=== PATIENT | female | born 1960 | race Caucasian/White ===

== ENCOUNTER 2016-05-20 20:16 | Inpatient (IN) | payer OTHER ==
[~2016-05-20] VITALS: Ht 165.1 cm; Wt 72.6 kg
[~2016-05-20 20:16] MED LIST: EC NAPROSYN500 MG PO; PERCOCET 325 MG1 TA2 PO
--- NOTE | 2016-05-20 20:45 | ED GENERAL ADULT ---
History of Present Illness General Chief Complaint: General Adult Stated Complaint: DIFF BREATHING /"I THINK I HAVE THE FLU"PER PT Source: patient Exam Limitations: no limitations Vital Signs & Intake/Output Vital Signs & Intake/Output Vital Signs Date Time Temp Pulse Resp B/P Pulse O2 O2 Flow FiO2 Ox Delivery Rate 05/21 1222 94 Nasal 3.0L Cannula 05/21 0926 96 Nasal 3.0L Cannula 05/21 0920 Nasal 3.0L Cannula 05/21 0800 94 Nasal 2.0L Cannula 05/21 0619 99.2 111 20 150/80 97 Nasal 2.0L Cannula 05/21 0043 97 Nasal 2.0L Cannula 05/20 2352 97.4 100 18 164/86 97 Nasal 2.0L Cannula 05/20 2209 98.6 108 22 168/86 93 Nasal 2.0L Cannula 05/20 2101 Nasal 2.0L Cannula 05/20 2027 97.9 102 22 180/103 91 Room Air ED Intake and Output 05/21 0000 05/20 1200 Intake Total Output Total Balance Patient 160 lb Weight Triage Note: PT TO ED C/O DIFF BREATHING, NAUSEA/DRY HEAVING/DIARRHEA AND MILD HEADACHE, STARTED YESTERDAY, WORSE TODAY. PMH OF COPD, USES ADVAIR AND ALBUTEROL INH. O2 SAT 91% ON RA WITH INCREASED WOB AND DIMINISHED LUNG SOUNDS. DENIES SORE THROAT Triage Nurses Notes Reviewed? yes Onset: Abrupt Duration: day(s): (2), constant, continues in ED Timing: recent history Severity: moderate, severe No Modifying Factors: none HPI: 55-year-old female comes into emergency room for further evaluation of cough, fever or chills body aches, diarrhea, weakness, shortness of breath and wheezing. Symptoms of a going on for the past 2 days. Patient feels like she has the flu. Denies any chest pain. Nothing seems to make the symptoms better or worse. Patient has a history of COPD and is not on oxygen at home. (VASHTI LEWIS) Allergies Coded Allergies: Penicillins (UNKNOWN 05/20/16) bupropion (UNKNOWN 05/20/16) iodine (UNKNOWN 05/20/16) shellfish derived (UNKNOWN 05/20/16) Reconcile Medications Albuterol Sulfate (Ventolin Hfa) 90 MCG HFA.AER.AD 2 PUF INH Q4-6 PRN PRN SOB (Reported) Fluticasone/Salmeterol (Advair 250-50 Diskus) 250 MCG-50 MCG/DOSE BLST.W.DEV 1 PUF INH BID COPD (Reported) (FRANSICO DAN,KATE) Past History Travel History Traveled to [place] past 21 day No Medical History Any Pertinent Medical History? see below for history Respiratory: COPD Surgical History Surgical History: non-contributory Psychosocial History What is your primary language Croatian Tobacco Use: Current Daily Use Daily Tobacco Use Amount/Type: => 5 Cigarettes daily ETOH Use: 5 Family History Hx Contributory? No (VASHTI LEWIS) Review of Systems Review of Systems Constitutional: Reports: see HPI. EENTM: Reports: see HPI. Respiratory: Reports: see HPI. Cardiovascular: Reports: no symptoms. GI: Reports: no symptoms. Genitourinary: Reports: no symptoms. Musculoskeletal: Reports: no symptoms. Skin: Reports: no symptoms. Neurological/Psychological: Reports: no symptoms. Hematologic/Endocrine: Reports: no symptoms. Immunologic/Allergic: Reports: no symptoms. All Other Systems: Reviewed and Negative (VASHTI LEWIS) Physical Exam Physical Exam General Appearance: alert, awake, moderate distress Head: atraumatic, normal appearance Eyes: Bilateral: normal appearance, EOMI. Ears, Nose, Throat: normal ENT inspection, hearing grossly normal Neck: normal inspection Respiratory: accessory muscle use, respiratory distress (mild) Cardiovascular: regular rate/rhythm Back: normal inspection Extremities: normal inspection Neurologic/Psych: awake, alert, oriented x 3, normal gait Skin: intact, normal color Core Measures ACS in differential dx? Yes CVA/TIA Diagnosis: No Severe Sepsis Present: No Septic Shock Present: No (VASHTI LEWIS) Progress Differential Diagnoses I considered the following diagnoses in my evaluation of the patient: Influenza , COPD, pneumonia, sepsis, sinusitis, bronchitis, pulmonary embolism, UT, Plan of Care: Orders Procedure Date/time Status Regular Diet 05/21 B Active RT: Evaluation 05/21 09 Active Change service to 05/21 0728 Active HEPATIC FUNCTION PANEL 05/21 0632 Complete CBC WITHOUT DIFFERENTIAL 05/21 0600 Complete BASIC ELECTROLYTES PLUS BUN&CR 05/21 0600 Complete Vital Signs 05/21 003 Active Teach/Educate 05/21 0030 Active Nutritional Intake, Monitor 05/21 0030 Active Isolation 05/21 0030 Active Intake & Output 05/21 0030 Active Patient Care Conference 05/21 0030 Active Activity/Ambulation 05/21 0030 Active THERAPIST ORDERS 05/21 UNK Complete OXYGEN SETUP (GEN) 05/21 UNK Complete MISSING MEDICATION FORM 05/21 UNK Active LOWER RESPIRATORY CULTURE 05/20 2230 Active CULTURE,URINE 05/20 2224 Active STREP PNEUMO URINARY ANTIGEN 05/20 2224 Active LEGIONELLA URINARY ANTIGEN 05/20 2224 Active BLOOD CULTURE 05/20 2224 Active URINALYSIS 05/20 2224 Active Pathway - chart 05/20 2223 Active Patient Data 05/20 2223 Active Patient Data 05/20 2209 Active Admit to inpatient 05/20 2207 Active Vital Signs 05/20 2207 Active Code Status 05/20 2207 Active Intake & Output 05/20 2101 Active VIRAL CULTURE 05/20 2054 Active TROPONIN LEVEL 05/20 2043 Complete COMPREHENSIVE METABOLIC PANEL 05/20 2043 Complete CBC WITHOUT DIFFERENTIAL 05/20 2043 Complete EKG 05/20 2043 Active RAPID VIRAL INFLUENZA A 05/20 2021 Complete TRC EVALUATION (GEN) 05/20 UNK Complete House Staff 05/20 UNK Active VTE Mechanical Prophylaxis 05/20 UNK Active Vital Signs 05/20 UNK Complete Intake & Output 05/20 UNK Complete Current Medications Sig/Tha Start time Last Medication Dose Stop Time Status Admin Budesonide/ 2 PUF BID 05/21 1140 CAN Formoterol Fumarate (Symbicort) Oseltamivir Phosphate 75 MG BID 05/21 1000 AC (Tamiflu 75MG) 05/25 0959 Acetaminophen 650 MG Q6P PRN 05/20 2230 AC (Tylenol) Albuterol Sulfate 2 PUF Q4-6 PRN PRN 05/20 2229 AC (Ventolin) Guaifenesin 10 ML Q4P PRN 05/20 2230 AC (Robitussin) Oxycodone/ 2 TAB Q6P PRN 05/20 2230 AC Acetaminophen (Percocet) Laboratory Tests 05/21/16 1019: Total Bilirubin 0.6, Direct Bilirubin 0.6 H, AST 47 H, ALT 56 H, Alkaline Phosphatase 92, Total Protein 6.3, Albumin 3.8 05/21/16 0710: Anion Gap 10, Estimated GFR > 60, BUN/Creatinine Ratio 10.0, CBC w Diff NO MAN DIFF REQ, RBC 5.01, MCV 90.2, MCH 30.4, RDW 14.1, MPV 7.7, Gran % 93.2 H, Lymphocytes % 5.1 L, Monocytes % 1.2 L, Eosinophils % 0, Basophils % 0.5, Absolute Granulocytes 4.0, Absolute Lymphocytes 0.2 L, Absolute Monocytes 0.1 L, Absolute Eosinophils 0, Absolute Basophils 0, PUBS MCHC 33.7 05/20/162054: Anion Gap 10, Estimated GFR > 60, BUN/Creatinine Ratio 10.0, Glucose 99, Calcium 8.7, Total Bilirubin 0.5, AST 77 H, ALT 63 H, Alkaline Phosphatase 104, Troponin I < 0.01, Total Protein 6.4, Albumin 3.7, Globulin 2.7, Albumin/ Globulin Ratio 1.4, CBC w Diff NO MAN DIFF REQ, RBC 4.70, MCV 89.5, MCH 30.5, RDW 13.8, MPV 7.0 L, Gran % 82.8 H, Lymphocytes % 6.1 L, Monocytes % 9.1, Eosinophils % 1.7, Basophils % 0.3, Absolute Granulocytes 5.8, Absolute Lymphocytes 0.4 L, Absolute Monocytes 0.6, Absolute Eosinophils 0.1, Absolute Basophils 0, PUBS MCHC 34.1, Virus Culture Pending Microbiology 05/21 050 URINE ROUT: Legionella Antigen - RECD 05/21 0500 URINE ROUT: Streptococcus pneumoniae Antigen (M - RECD 05/21 0500 URINE ROUT: Urine Culture - RECD 05/20 2247 BLOOD: Blood Culture - RES 05/20 2238 BLOOD: Blood Culture - RES 05/20 2230 LOWER RESP: Respiratory Culture - COLB 05/20 2230 LOWER RESP: Gram Stain - COLB 05/20 2054 NASOPHARYN: Influenza Virus A & B Rapid Smear - COMP INFLUENZA TYPE A Diagnostic Imaging: Viewed by Me: Radiology Read. Discussed w/RAD: Radiology Read. Radiology Impression: SERVICE DATE: 05/20/16-2043 EXAM TYPE: RAD - XRY- PORTABLE CHEST XRAY EXAMINATION: XR PORTABLE CHEST CLINICAL INFORMATION: Shortness of breath. COMPARISON: Chest radiography 08/28/2008. TECHNIQUE: Portable AP view of the chest was obtained. FINDINGS: The lungs are well expanded/mildly hyperexpanded. Mild bronchovascular prominence. No pulmonary edema, convincing lobar consolidation, pleural effusion, or pneumothorax. No mediastinal widening. No acute osseous abnormalities. IMPRESSION: Mild bronchovascular prominence may reflect small airways inflammation. Mildly hyperexpanded lungs either represents prominent inspiratory effort or possibly changes of COPD. Initial ED EKG: normal intervals, normal p-waves, normal QRS complex, normal sinus rhythm, rate (98) (VASHTI LEWIS) Departure Departure Disposition: STILL A PATIENT Condition: Stable Clinical Impression Primary Impression: COPD exacerbation Secondary Impressions: Hypoxia, Influenza A Referrals: JEANNINE CAMARGO MD (PCP/Family) Departure Forms: Customer Survey General Discharge Information Admission Note Spoke With: YANG CUI MD Documentation of Exam: Documentation of any treatments & extenuating circumstances including Concerns Regarding Discharge (functional status, medication knowledge or non-compliance, living conditions, etc.) that warrant an admission rather than observation: Patient tachypnea here in the emergency room. Patient will require regular breathing treatments. Supplemental oxygen. Pulmonary consult. Patient also has influenza. O2 saturation 87% on ambulation. Patient would do poorly as an outpatient. Patient will need supportive care. Repeat labs. (VASHTI LEWIS) PA/KENNEL TECHNICIAN Co-Sign Statement Statement: ED Attending supervision documentation- [] I saw and evaluated the patient. I have also reviewed all the pertinent lab results and diagnostic results. I agree with the findings and the plan of care as documented in the PA's/KENNEL TECHNICIAN's documentation. [X] I have reviewed the ED Record and agree with the PA's/KENNEL TECHNICIAN's documentation. [] Additions or exceptions (if any) to the PAs/KENNEL TECHNICIAN's note and plan are summarized below: [] (FRANSICO DAN,KATE) Critical Care Note Critical Care Note Critical Care Time: non-applicable (VASHTI LEWIS)
[2016-05-20 21:10] LABS: ABSOLUTE BASOPHIL COUNT 0 /CUMM (0.0-0.2); ABSOLUTE EOSINOPHIL COUNT 0.1 /CUMM (0.0-0.7); ABSOLUTE GRANULOCYTE CT 5.8 /CUMM (1.4-6.5); ABSOLUTE LYMPH COUNT 0.4 /CUMM (1.2-3.4); ABSOLUTE MONOCYTE COUNT 0.6 /CUMM (0.10-0.60); BASOPHIL % 0.3 % (0.0-2.0); EOSINOPHIL % 1.7 % (0-5); GRANULOCYTE % 82.8 % (42.2-75.2); HEMATOCRIT 42.1 % (37-47); MEAN CORPUSCULAR HGB 30.5 PG (27.0-31.0); MEAN CORPUSCULAR HGB CONC 34.1 G/DL (33.0-37.0); MEAN CORPUSCULAR VOLUME 89.5 FL (81.0-99.0); PLATELET COUNT 170 /CUMM (130-400); RBC DISTRIBUTION WIDTH 13.8 % (11.5-14.5)
--- NOTE | 2016-05-20 22:03 | RADIOLOGY REPORT ---
EXAMINATION: XR PORTABLE CHEST CLINICAL INFORMATION: Shortness of breath. COMPARISON: Chest radiography 08/28/2008. TECHNIQUE: Portable AP view of the chest was obtained. FINDINGS: The lungs are well expanded/mildly hyperexpanded. Mild bronchovascular prominence. No pulmonary edema, convincing lobar consolidation, pleural effusion, or pneumothorax. No mediastinal widening. No acute osseous abnormalities. IMPRESSION: Mild bronchovascular prominence may reflect small airways inflammation. Mildly hyperexpanded lungs either represents prominent inspiratory effort or possibly changes of COPD.
[2016-05-20] MEDS ORDERED: VENTOLIN HFA18 GM INH (22:23)
[2016-05-20] MEDS ORDERED: ADVAIR 250-501 EACH INH (22:23)
--- NOTE | 2016-05-20 22:43 | History & Physical ---
PHILLIP DAN,MI 05/20/16 2236: General Information and HPI MD Statement: I have seen and personally examined YUDITH AGUILAR and documented this H&P. The patient is a 55 year old F who presented with a patient stated chief complaint of [SOB, Cough, Vomiting, diarrhea]. Source of Information: patient, family, old records Exam Limitations: no limitations History of Present Illness: This is a 55 yo female current smoker with PMH of COPD dx in 2008 not on home O2 with last flare several years ago who presents with CC of SOB, N/V/D/fatigue and headache. She states that she took a flight on 05/23 to [place] for a work meeting and didn't feel well. She endorsed sick contacts at the meeting. She stated that she subsequently felt tired with general malaise until this AM when she work up acutely with headache, vomiting, diarrhea, sob, fatigue, and cough currently not productive of sputum. She states that she increased frequency of her inhalers, took "cold medication" and Mucinex with some benefit. She smokes .5 pack currently but endorses 1-1.5 pack per day history previously since the age of 15 giving her 40+ pack year history. Allergies/Medications Allergies: Coded Allergies: Penicillins (UNKNOWN 05/20/16) bupropion (UNKNOWN 05/20/16) iodine (UNKNOWN 05/20/16) shellfish derived (UNKNOWN 05/20/16) Home Med list Albuterol Sulfate (Ventolin Hfa) 90 MCG HFA.AER.AD 2 PUF INH Q4-6 PRN PRN SOB (Reported) Fluticasone/Salmeterol (Advair 250-50 Diskus) 250 MCG-50 MCG/DOSE BLST.W.DEV 1 PUF INH BID COPD (Reported) Compliance With Home Meds: GOOD Past History Travel History Traveled to [place] past 21 day No Medical History Respiratory: COPD Surgical History Surgical History: carpal tunnel , D/C, Cataract Past Family/Social History Psychosocial History Smoking Status: Current Everyday Smoker ETOH Use: occasional use Illicit Drug Use: denies illicit drug use Functional Ability ADLs Independent: dressing, eating, toileting, bathing. Ambulation: independent IADLs Independent: shopping, housework, finances, food prep, telephone, transportation , medication admin. Employment History Employment Employed Review of Systems Review of Systems Constitutional: Reports: chills, fever. Denies: diaphoresis, malaise, weakness. EENTM: Denies: blurred vision, double vision, visual changes. Cardiovascular: Reports: orthopena. Denies: chest pain, edema, palpitations. Respiratory: Reports: cough, short of breath, sputum production. Denies: hemoptysis. GI: Reports: diarrhea, nausea, vomiting. Denies: abdominal pain, bloating, constipation. Genitourinary: Reports: no symptoms. Musculoskeletal: Reports: no symptoms. Skin: Reports: no symptoms. Neurological/Psychological: Reports: no symptoms. Exam & Diagnostic Data Last 24 Hrs of Vital Signs/I&O Vital Signs Date Time Temp Pulse Resp B/P Pulse O2 O2 Flow FiO2 Ox Delivery Rate 05/20 2208 98.6 108 22 168/86 93 Nasal 2.0L Cannula 05/20 2101 Nasal 2.0L Cannula 05/20 2027 97.9 102 22 180/103 91 Room Air Physical Exam General Appearance Alert, Oriented X3, Cooperative, No Acute Distress Skin has some petechiae and sores on bilat arms. HEENT Atraumatic, PERRLA, EOMI, Mucous Membr. moist/pink Neck Supple Cardiovascular Regular Rate, Normal S1, Normal S2, No Murmurs Lungs DIMINISHED BREATH SOUNDS AND AIR MOVEMENT. NO WHEEZES, RUBS OR RHONCHI. Abdomen Soft, No Tenderness Neurological Normal Speech, Strength at 5/5 X4 Ext Extremities No Clubbing, No Cyanosis, No Edema, Normal Pulses Last 24 Hrs of Labs/Bill: Laboratory Tests 05/20/162054: Anion Gap 10, Estimated GFR > 60, BUN/Creatinine Ratio 10.0, Glucose 99, Calcium 8.7, Total Bilirubin 0.5, AST 77 H, ALT 63 H, Alkaline Phosphatase 104, Troponin I < 0.01, Total Protein 6.4, Albumin 3.7, Globulin 2.7, Albumin/ Globulin Ratio 1.4, CBC w Diff NO MAN DIFF REQ, RBC 4.70, MCV 89.5, MCH 30.5, RDW 13.8, MPV 7.0 L, Gran % 82.8 H, Lymphocytes % 6.1 L, Monocytes % 9.1, Eosinophils % 1.7, Basophils % 0.3, Absolute Granulocytes 5.8, Absolute Lymphocytes 0.4 L, Absolute Monocytes 0.6, Absolute Eosinophils 0.1, Absolute Basophils 0, PUBS MCHC 34.1 Microbiology 05/20 2247 BLOOD: Blood Culture - RECD 05/20 2238 BLOOD: Blood Culture - RECD 05/20 2230 LOWER RESP: Respiratory Culture - ORD 05/20 2230 LOWER RESP: Gram Stain - ORD 05/20 2224 URINE ROUT: Legionella Antigen - ORD 05/20 2224 URINE ROUT: Streptococcus pneumoniae Antigen (M - ORD 05/20 2224 URINE ROUT: Urine Culture - ORD 05/20 2054 NASOPHARYN: Influenza Virus A & B Rapid Smear - COMP INFLUENZA TYPE A Assessment/Plan Assessment: This is a 55 yo female with PMH of COPD not on home O2 who presents with CC of weakness, SOB, N/V/headache and generalized malaise. She endorses recent travel and sick contacts. In ED pt was positive for influzenza screen and was found to be de-saturating upon ambulation. Likely she has acute hypoxic repiratory failure 2/2 COPD with superimposed influenza. PLAN: Acute Hypoxic respiratory failure 2/2 COPD superimposed with influenza: She is afebrile with WBC 7.0. However, she has HR 108 and RR 22 with BP 168/86. CXR showed small airway inflammation and hyperexpanded lungs. Pt woke up this AM acutely with symptoms of H/A, N/V but she states that she felt generalized malaise since returning from her business trip on Saturday. She is within the window for Tamiflu. * Start Tamiflu for 5 days * O2 via NC for sats>92 * azithromycin 250mg PO daily * IV solumedrol * TRC * F/U cultures Tranamanitis: Pt has AST 77 and ALT 63; denies chronic etoh use. * Con't monitor. Hyponatremia: Pt comesi n with NA 132. Likely 2/2 decreased PO intake and Nausea and vomiting. * Encourage po intake * monitor BEP Smoking: Pt is a current every day smoker. She currently smokes .5 ppd. Encouraged to quit and counseled on cessation. * nicotine patch FULL CODE REGULAR DIET CHEMICAL DVT PPX As Ranked By This Provider Problem List: 1. Hypoxia 2. Influenza A 3. COPD exacerbation Core Measures/Miscellaneous Acute Coronary Syndrome ACS Diagnosis: No Cerebrovascular Accident CVA/TIA Diagnosis: No Congestive Heart Failure CHF Diagnosis: No Venous Thromboembolism VTE Risk Factors: Acute medical illness, Age > 40, CHF or Resp failure VTE Prophylaxis Ordered Inpt: Pharm- Lovenox No Mech VTE prophylaxis d/t: No contraindications No VTE Pharm Prophylaxis d/t: No contraindications VTE Diagnosis: No VTE Type: NONE VTE Confirmed by (Test): NONE Severe Sepsis Severe Sepsis Present: No Septic Shock Septic Shock Present: No Miscellaneous Documentation Attending Case Discussed With: YANG CUI MD Primary Care Physician: JEANNINE CAMARGO MD Patient sees these Specialists none Level of Patient Care: General Medicine GUILHERME COLLADO MD 05/20/16 2242: Resident Review Statement Resident Statement: examined this patient, discussed with internet marketer Other Findings: 55-year-old lady with a past history significant for COPD, 40+ pack year smoking history, current half pack per day every day smoker presents to the emergency room with a 36 hour history of muscle aches and pains, fatigue, productive cough , chills. Denies any chest pain fevers or chills. States that she has used her inhalers and nebulizers more frequently over the last couple of days, on Saturday she went to [place] for a work conference and stated that a couple of her colleagues were sick when she came back Saturday night she experienced the same symptoms. Took some Mucinex with mild relief in her symptoms. She was tested flu positive in the emergency room. Physical exam is significant for decreased air entry bilaterally Labs are benign, mild transaminitis Chest x-ray shows mild hyper inflation of the lungs Assessment- 1. SIRS with superimposed influenza 2. Acute Hypoxic respiratory failure, desaturated to 87% in the emergency room upon ambulation 3. COPD exacerbation 4. Mild transaminitis, likely reactive 5. Nicotine dependence Plan- GEN med admit Perez culture Tamiflu 75 twice a day for 5 days IV Solu-Medrol and azithromycin TRC eval, total pulmonary toilet Continue nebulizer and inhaler 14 g nicotine patch DVT prophylaxis with subcutaneous heparin Regular diet Pain pathway Full code CHICHI CUI MD 05/20/16 2314: Attending MD Review Statement Attending Statement Attending MD Statement: examined this patient, discuss w/resident/PA/BPM ANALYST, agreed w/resident/PA/BPM ANALYST Attending Assessment/Plan: 55 yo F smoker, with h/o COPD is here with 2 -3 day h/o flu like symptoms, cough productive of white phlegm, dyspnea, nausea, dry heaving and diarrhea. Recent travel to [place] for an official meeting (05/16 05/18) where she had sick contacts+. She did not receive the flu vaccine last year. No relief with inhalers. Vitals: afebrile, tachycardic, sats 91% RA --> 97% on 2L, sats dropped to 87 % on RA on ambulation. Oropharynx: erythema+. Chest: b/l reduced air entry, no audible wheeze. Labs: no leukocytosis, Na 132, AST 77, ALT 63, trop neg. EKG: SR. CXR: mild bronchovascular prominence- small airways inflammation; hyperexpanded lungs. 1. Hypoxia, influenza with COPD exacerbation. Sputum culture, TRC nebs, Tamiflu for 5 days, IV steroids, azithro for 5 days, smoking cessation counseling done. Nicotine patch. 2. Transaminitis. Gentle hydration, trend LFTs. DVT ppx Hep SC. Full code.
--- NOTE | 2016-05-20 23:15 | Admission Certification ---
Admission Certification Certification Statement - As attending physician, I certify that at the time of - admission, based on clinical presentation, severity of - symptoms, need for further diagnostic testing and - therapeutic interventions, and risk of adverse outcomes - without in-hospital treatment, in my clinical assessment, - this patient requires an acute hospital stay for a minimum - of two nights or longer. I have also considered psychsocial - factors such as support system, advanced age, financial - issues, cognitive issues, and failed out-patient treatments, - past re-admission history, safety of patient, and lack of - compliance as applicable. Specific rationale supporting this admission is: Hypoxia, influenza and COPD exacerbation.
[2016-05-21 06:19] VITALS: BP 150/80
--- NOTE | 2016-05-21 07:15 | PN- Housestaff ---
INDIGO DELGADILLO 05/21/16 0714: Subjective Follow-up For: - Influenza A positive - COPD exacerbation Subjective: She was comfortable this morning. She was afebrile overnight. Vitals were stable. 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 Does not use oxygen at home. Current smoker with [id number] smoking history. Was concerned about shortness of breath started a few months ago, on exertion which progressed to shortness of breath at rest. Cough 1 week mucoid. Recent visit to [place] one week ago. Review of Systems Constitutional: Reports: see HPI. Objective Last 24 Hrs of Vital Signs/I&O Vital Signs Date Time Temp Pulse Resp B/P Pulse O2 O2 Flow FiO2 Ox Delivery Rate 05/21 06 99.2 111 20 150/80 97 Nasal 2.0L Cannula 05/21 0043 97 Nasal 2.0L Cannula 05/20 2352 97.4 100 18 164/86 97 Nasal 2.0L Cannula 05/209 98.6 108 22 168/86 93 Nasal 2.0L Cannula 05/20 2101 Nasal 2.0L Cannula 05/20 2027 97.9 102 22 180/103 91 Room Air Intake & Output 05/21 0800 05/21 0000 05/20 1600 Intake Total Output Total Balance Patient 160 lb 160 lb Weight Physical Exam General Appearance: No Acute Distress Other Physical Findings: General Exam: AAOx3, No acute distress, Skin: No rashes, no breakdown HEENT: PERRLA, EOMI Neck: Supple, No JVD No cervical lymphadenopathy CVS: Reg Rate, Normal S1,S2, No MGR Resp: Dereased air entry bilaterally, wheezes b/l Abdomen: Soft, No tenderness, Normal Bowel Sounds Neuro: Normal Speech, Strength 5/5 b/l x 4 extremities, Sensation intact, CN III -XII NL, Reflexes 2+ Extremities: No cyanosis, pedal edema Current Medications: Current Medications Sig/Tha Start time Last Medication Dose Route Stop Time Status Admin Acetaminophen 650 MG Q6P PRN 05/20 2229 AC PO Albuterol Sulfate 2 PUF Q4-6 PRN PRN 05/20 2229 AC INH Albuterol Sulfate 3 ML ONCE ONE 05/20 2044 DC 05/20 INH 02/19 2046 2113 Azithromycin 250 MG DAILY 05/21 1000 AC PO Budesonide/ 2 PUF BID 05/20 2223 AC 05/20 Formoterol Fumarate INH 2318 Guaifenesin 10 ML Q4P PRN 05/20 223 AC PO Heparin Sodium 5,000 UNIT Q8 05/21 0600 AC 05/21 (Porcine) SC 0653 Ibuprofen 600 MG Q6P PRN 05/20 2230 AC 05/21 PO 0341 Ipratropium [place] 2.5 ML ONCE ONE 05/20 2044 DC 05/20 INH 05/20 Methylprednisolone 40 MG Q8 05/21 0600 AC 05/21 IV 0653 Methylprednisolone 0 .STK-MED ONE 05/20 2236 DC .ROUTE Methylprednisolone 125 MG ONCE ONE 05/20 2214 DC 05/20 IV 05/20 Nicotine 14 MG DAILY 05/21 1000 AC TOP Oseltamivir Phosphate 75 MG BID 05/21 1000 AC PO 05/25 0959 Oseltamivir Phosphate 0 .STK-MED ONE 05/20 2236 DC PO Oseltamivir Phosphate 75 MG ONCE ONE 05/20 2214 DC 05/20 PO 05/20 2215 224 Oxycodone/ 2 TAB Q6P PRN 05/20 2229 AC Acetaminophen PO Sodium Chloride 1,000 ML Q20H 05/21 0645 AC 05/21 IV 0654 Last 24 Hrs of Lab/Bill Results Last 24 Hrs of Labs/Mics: Laboratory Tests 05/20/162054: Anion Gap 10, Estimated GFR > 60, BUN/Creatinine Ratio 10.0, Glucose 99, Calcium 8.7, Total Bilirubin 0.5, AST 77 H, ALT 63 H, Alkaline Phosphatase 104, Troponin I < 0.01, Total Protein 6.4, Albumin 3.7, Globulin 2.7, Albumin/ Globulin Ratio 1.4, CBC w Diff NO MAN DIFF REQ, RBC 4.70, MCV 89.5, MCH 30.5, RDW 13.8, MPV 7.0 L, Gran % 82.8 H, Lymphocytes % 6.1 L, Monocytes % 9.1, Eosinophils % 1.7, Basophils % 0.3, Absolute Granulocytes 5.8, Absolute Lymphocytes 0.4 L, Absolute Monocytes 0.6, Absolute Eosinophils 0.1, Absolute Basophils 0, PUBS MCHC 34.1 Microbiology 05/20 2247 BLOOD: Blood Culture - RECD 05/20 2238 BLOOD: Blood Culture - RECD 05/20 2230 LOWER RESP: Respiratory Culture - COLB 05/20 2230 LOWER RESP: Gram Stain - COLB 05/20 2224 URINE ROUT: Legionella Antigen - [facility] 05/20 2224 URINE ROUT: Streptococcus pneumoniae Antigen (M - [facility] 05/20 2224 URINE ROUT: [facility] 05/20 2054 NASOPHARYN: Influenza Virus A & B Rapid Smear - COMP INFLUENZA TYPE A Assessment/Plan Assessment: She is a middle-aged woman with a past history of COPD (not on any home oxygen), nonsmoker is being evaluated for worsening shortness of breath 2 months, cough, fever 1 week. At the time of admission, vitals temperature 97.9, pulse rate 102, respiratory rate 22, blood pressure 168/86 (improved to 130/100), lab findings indicated platelets 170, sodium 132, potassium 4.1. Bicarbonate 26. Hemoglobin 14.4. Normal renal function- BUN 5, serum creatinine 0.5. Rapid influenza test-positive. AST 77, ALT 63, alkaline phosphatase 104, cardiac enzymes-troponin 0.01. Albumin 3.7. Radiological findings-chest x-ray showed mild bronchovascular prominence. Hyperexpanded lungs likely from COPD. Differential diagnosis: #1 acute exacerbation of COPD likely from influenza. Below is the problem list and plan: #1 shortness of breath, cough, fever-likely due to influenza, and COPD exacerbation. Continue intravenous steroids. Azithromycin. TRC, albuterol and Symbicort. Continue Tamiflu 75 mg by mouth twice a day. Follow low respirator cultures and blood cultures. Francisco J Acevedo MD advising. Taper oxygen as tolerated. DC fluids after current 1 bag of normal saline. Legionella urine antigen. Although low on differential, elevated transaminases and hyponatremia- needs monitoring at least for the next 24 hours. #2 elevated AST/ALT-likely due to hepatic steatosis. Continue to monitor closely for any signs of liver disease. #3 DVT prophylaxis-subcutaneous tenderness heparin. #4 smoking cessation-discussed in detail about the adverse effects of smoking on worsening COPD and cancer. Problem List: 1. Influenza A 2. Hypoxia 3. COPD exacerbation Pain Ratin Pain Location: None Pain Goal: Pain 4 or less Pain Plan: Tylenol when necessary Tomorrow's Labs & Rationales: - CBC- the patient had lymphopenia with granulocytosis. Basic electrolyte panel -to monitor hyponatremia. Patient had low sodium at the time of admission. ELIEZER DAN,LULU 05/21/16 1343: Attending MD Review Statement Attending Statement Attending MD Statement: examined this patient, discuss w/resident/PA/YOUTH NUTRITIONAL MONITOR, agreed w/resident/PA/YOUTH NUTRITIONAL MONITOR, reviewed EMR data (avail), discussed with nursing, discussed with case mgmt Attending Assessment/Plan: 85-year-old female with past medical history of COPD, still actively smoking who is here with acute influenza and a COPD exacerbation. We are treating her with Tamiflu and IV steroids and by mouth as her throat. Her chest x-ray is negative and there is no evidence of influenza pneumonitis. I am concerned about her acute respiratory failure as evidenced by sat of 87% on ambulation. We spoke to her about tobacco cessation and will call pulmonary consult as to whether the degree of COPD is reflected in the degree of hypoxemia.
[2016-05-21 08:11] LABS: ABSOLUTE BASOPHIL COUNT 0 /CUMM (0.0-0.2); ABSOLUTE EOSINOPHIL COUNT 0 /CUMM (0.0-0.7); ABSOLUTE LYMPH COUNT 0.2 /CUMM (1.2-3.4); ABSOLUTE MONOCYTE COUNT 0.1 /CUMM (0.10-0.60); BASOPHIL % 0.5 % (0.0-2.0); EOSINOPHIL % 0 % (0-5); HEMATOCRIT 45.2 % (37-47); MEAN CORPUSCULAR HGB 30.4 PG (27.0-31.0); MEAN CORPUSCULAR HGB CONC 33.7 G/DL (33.0-37.0); MEAN CORPUSCULAR VOLUME 90.2 FL (81.0-99.0); MEAN PLATELET VOLUME 7.7 FL (7.4-10.4); PLATELET COUNT 170 /CUMM (130-400); RBC DISTRIBUTION WIDTH 14.1 % (11.5-14.5); RED BLOOD CELL CT 5.01 /CUMM (4.20-5.40); WHITE BLOOD CELL COUNT 4.3 /CUMM (4.8-10.8)
--- NOTE | 2016-05-21 08:42 | Discharge Summary ---
Visit Information Visit Dates Admission Date: 05/20/16 Discharge Date: 05/23/16 Hospital Course Course Attending Physician: SONAM ROPER MD Primary Care Physician: JEANNINE CAMARGO MD Hospital Course: She is a middle-aged woman with a past history of COPD (not on any home oxygen), nonsmoker is being evaluated for worsening shortness of breath 2 months, cough, fever 1 week. At the time of admission, vitals temperature 97.9, pulse rate 102, respiratory rate 22, blood pressure 168/86 (improved to 130/100), lab findings indicated platelets 170, sodium 132, potassium 4.1. Bicarbonate 26. Hemoglobin 14.4. Normal renal function- BUN 5, serum creatinine 0.5. Rapid influenza test-positive. AST 77, ALT 63, alkaline phosphatase 104, cardiac enzymes-troponin 0.01. Albumin 3.7. Quick flu positive for A. Radiological findings-chest x-ray showed mild bronchovascular prominence. Hyperexpanded lungs likely from COPD. Differential diagnosis: #1 acute exacerbation of COPD likely from influenza. Below is the problem list and plan: #1 shortness of breath, cough, fever-likely due to influenza, and COPD exacerbation. Started on intravenous steroids, which was tapered quickly sicne the pt had a viral respiratory illness. She was started on abx-Azithromycin, TRC, albuterol and Symbicort. Tamiflu 75 mg by mouth twice a day for a total of 5 days. Francisco J Acevedo MD was advising. Required, oxygen at the time of discharge, as the pt was hypoxemic upon ambulation < 88%. Arrangements were made for the suppy of oxygen and nebulizer machine. To follow up with Dr. Acevedo and Dr. Camargo. Remained asymptomatic in the hospital. #2 elevated AST/ALT-likely due to hepatic steatosis. Did not have any other signs of liver disease. No further investigations done. #3 DVT prophylaxis-subcutaneous heparin. #4 smoking cessation- reinforced the idea of smoking cessation, and she understands it. Did not request any nicotine patch. Was motivated to quit smoking. Allergies: Coded Allergies: Penicillins (UNKNOWN 05/20/16) bupropion (UNKNOWN 05/20/16) shellfish derived (UNKNOWN 05/20/16) Pertinent Lab Results: RAD - XRY-PORTABLE CHEST XRAY FINDINGS: The lungs are well expanded/mildly hyperexpanded. Mild bronchovascular prominence. No pulmonary edema, convincing lobar consolidation, pleural effusion, or pneumothorax. No mediastinal widening. No acute osseous abnormalities. IMPRESSION: Mild bronchovascular prominence may reflect small airways inflammation. Mildly hyperexpanded lungs either represents prominent inspiratory effort or possibly changes of COPD. --------- RAPID VIRAL INFLUENZA A/B Final 05/20/16-2120 POSITIVE FOR INFLUENZA TYPE A Disposition Summary Disposition Principal Diagnosis: AECOPD Additional Diagnosis: Influenza Discharge Disposition: home or self care Discharge Instructions General Discharge Information Code Status: Full Code Patient's Diet: as tolerated. Patient's Activity: - as tolerated. Follow-Up Instructions/Appts: - Please see your PCP within one week of discharge. - Please see your packing supervisor within one week of discharge. - Please take your medications as prescribed. Medications at Discharge Discharge Medications: Continue taking these medications: Albuterol Sulfate (Ventolin Hfa) 90 MCG HFA.AER.AD 2 Puff Inhale through mouth EVERY 4-6 HOURS NEEDED as needed for SOB Comments: Last Taken:NOT GIVEN IN HOSPITAL Time: Fluticasone/Salmeterol (Advair 250-50 Diskus) 250 MCG-50 MCG/DOSE BLST.W.DEV 1 Puff Inhale through mouth TWICE DAILY Comments: Last Taken:NOT GIVEN IN HOSPITAL Time: Start taking the following new medications: Oseltamivir Phosphate (Tamiflu) 75 MG CAPSULE 1 Capsule ORAL TWICE DAILY Qty = 5 No Refills Instructions: . Comments: Last Taken:05/23/16 Time:914 Tiotropium [place] (Spiriva) 18 MCG CAP.W.DEV 1 Capsule Inhale through mouth DAILY Qty = 30 No Refills Instructions: . Comments: Last Taken:NOT GIVEN IN HOSPITAL Time: Prednisone (Prednisone) 10 MG TABLET 4 Tablet ORAL DAILY Qty = 3 No Refills Instructions: . Comments: Last Taken:05/23/16 Time:914 Azithromycin (Zithromax) 250 MG TABLET 1 Dose Pack ORAL DAILY Qty = 2 No Refills Instructions: . Comments: Last Taken:05/23/16 Time:914 Albuterol Sulfate (Albuterol Sulfate) 0.63 MG/3 ML VIAL.NEB 1 Vial Inhale Solution 4 TIMES A DAY as needed for COPD Qty = 150 No Refills Instructions: . Comments: Last Taken:05/23/16 Time:1200 Copies To: RAMAN DAN,JEANNINE Gomez Attending MD Review Statement Documenting Attending: JUDSON DAN,SONAM
[2016-05-21 09:42] LABS: GRANULOCYTE % 93.2 % (42.2-75.2)
[2016-05-21 14:13] VITALS: BP 130/100
--- NOTE | 2016-05-21 15:21 | Cons- Pulmonary ---
General Information and HPI Consulting Request Date of Consult: 05/21/16 Requested By: med team History of Present Illness: This is a 55 yo female current smoker with PMH of COPD dx in 2008 not on home O2 with last flare several years ago who presents with CC of SOB, N/V/D/fatigue and headache. She states that she took a flight on 05/23 to [place] for a work meeting and didn't feel well. She endorsed sick contacts at the meeting. She stated that she subsequently felt tired with general malaise until this AM when she work up acutely with headache, vomiting, diarrhea, sob, fatigue, and cough currently not productive of sputum. She states that she increased frequency of her inhalers, took "cold medication" and Mucinex with some benefit. She smokes .5 pack currently but endorses 1-1.5 pack per day history previously since the age of 15 giving her 40+ pack year history. Allergies/Medications Allergies: Coded Allergies: Penicillins (UNKNOWN 05/20/16) bupropion (UNKNOWN 05/20/16) iodine (UNKNOWN 05/20/16) shellfish derived (UNKNOWN 05/20/16) Home Med List: Albuterol Sulfate (Ventolin Hfa) 90 MCG HFA.AER.AD 2 PUF INH Q4-6 PRN PRN SOB (Reported) Fluticasone/Salmeterol (Advair 250-50 Diskus) 250 MCG-50 MCG/DOSE BLST.W.DEV 1 PUF INH BID COPD (Reported) Review of Systems Review of Systems Constitutional: Reports: see HPI. Comments Review of Systems Constitutional: Reports: chills, fever. Denies: diaphoresis, malaise, weakness. EENTM: Denies: blurred vision, double vision, visual changes. Cardiovascular: Reports: orthopena. Denies: chest pain, edema, palpitations. Respiratory: Reports: cough, short of breath, sputum production. Denies: hemoptysis. GI: Reports: diarrhea, nausea, vomiting. Denies: abdominal pain, bloating, constipation. Genitourinary: Reports: no symptoms. Musculoskeletal: Reports: no symptoms. Skin: Reports: no symptoms. Neurological/Psychological: Reports: no symptoms. Past History Travel History Traveled to [place] past 21 day No Medical History Blood Transfusion Hx: No Neurological: NONE EENT: NONE Cardiovascular: NONE Respiratory: COPD Gastrointestinal: NONE Hepatic: NONE Renal: NONE Musculoskeletal: NONE Psychiatric: NONE Endocrine: NONE Blood Disorders: NONE Cancer(s): NONE DEVELOPER ADVISOR/Reproductive: NONE Surgical History Surgical History: carpal tunnel D/C Cataract Psychosocial History Where Do You Live? Home Services at Home: None Smoking Status: Current Everyday Smoker ETOH Use: occasional use Illicit Drug Use: denies illicit drug use Functional Ability ADLs Independent: dressing, eating, toileting, bathing. Ambulation: independent IADLs Independent: shopping, housework, finances, food prep, telephone, transportation , medication admin. Employment History Employment: Employed Exam & Diagnostic Data Last 24 Hrs of Vital Signs/I&O Vital Signs Date Time Temp Pulse Resp B/P Pulse O2 O2 Flow FiO2 Ox Delivery Rate 05/21 1413 98.4 98 20 130/100 97 05/21 1222 94 Nasal 3.0L Cannula 05/21 0926 96 Nasal 3.0L Cannula 05/21 0920 Nasal 3.0L Cannula 05/21 0800 94 Nasal 2.0L Cannula 05/21 0619 99.2 111 20 150/80 97 Nasal 2.0L Cannula 05/21 0043 97 Nasal 2.0L Cannula 05/20 2352 97.4 100 18 164/86 97 Nasal 2.0L Cannula 05/20 2209 98.6 108 22 168/86 93 Nasal 2.0L Cannula 05/20 2102 Nasal 2.0L Cannula 05/20 2027 97.9 102 22 180/103 91 Room Air Intake & Output 05/21 1600 05/21 0800 05/21 0000 Intake Total 880 350 Output Total 475 Balance 405 350 Intake, IV 400 50 Intake, Oral 480 300 Output, Urine 475 Patient 160 lb 160 lb Weight Last 48 Hrs of Labs/Bill: Laboratory Tests 05/21/16 1019: Total Bilirubin 0.6, Direct Bilirubin 0.6 H, AST 47 H, ALT 56 H, Alkaline Phosphatase 92, Total Protein 6.3, Albumin 3.8 05/21/16 0710: Anion Gap 10, Estimated GFR > 60, BUN/Creatinine Ratio 10.0, CBC w Diff NO MAN DIFF REQ, RBC 5.01, MCV 90.2, MCH 30.4, RDW 14.1, MPV 7.7, Gran % 93.2 H, Lymphocytes % 5.1 L, Monocytes % 1.2 L, Eosinophils % 0, Basophils % 0.5, Absolute Granulocytes 4.0, Absolute Lymphocytes 0.2 L, Absolute Monocytes 0.1 L, Absolute Eosinophils 0, Absolute Basophils 0, PUBS MCHC 33.7 05/20/162224: Urine Color Cancelled, Urine Clarity Cancelled, Urine pH Cancelled, Ur Specific [place] Cancelled, Urine Protein Cancelled, Urine Ketones Cancelled, Urine Nitrite Cancelled, Urine Bilirubin Cancelled, Urine Urobilinogen Cancelled, Ur Leukocyte Esterase Cancelled, Ur Microscopic Cancelled, Urine Hemoglobin Cancelled, Urine Glucose Cancelled 05/20/162054: Anion Gap 10, Estimated GFR > 60, BUN/Creatinine Ratio 10.0, Glucose 99, Calcium 8.7, Total Bilirubin 0.5, AST 77 H, ALT 63 H, Alkaline Phosphatase 104, Troponin I < 0.01, Total Protein 6.4, Albumin 3.7, Globulin 2.7, Albumin/ Globulin Ratio 1.4, CBC w Diff NO MAN DIFF REQ, RBC 4.70, MCV 89.5, MCH 30.5, RDW 13.8, MPV 7.0 L, Gran % 82.8 H, Lymphocytes % 6.1 L, Monocytes % 9.1, Eosinophils % 1.7, Basophils % 0.3, Absolute Granulocytes 5.8, Absolute Lymphocytes 0.4 L, Absolute Monocytes 0.6, Absolute Eosinophils 0.1, Absolute Basophils 0, PUBS MCHC 34.1, Virus Culture Pending Microbiology 05/20 2054 NASOPHARYN: Influenza Virus A & B Rapid Smear - COMP INFLUENZA TYPE A Assessment/Plan Impression/Plan: Physical Exam General Appearance Alert, Oriented X3, Cooperative, No Acute Distress Skin has some petechiae and sores on bilat arms. HEENT Atraumatic, PERRLA, EOMI, Mucous Membr. moist/pink Neck Supple Cardiovascular Regular Rate, Normal S1, Normal S2, No Murmurs Lungs DIMINISHED BREATH SOUNDS AND AIR MOVEMENT. NO WHEEZES, RUBS OR RHONCHI. Abdomen Soft, No Tenderness Neurological Normal Speech, Strength at 5/5 X4 Ext Extremities No Clubbing, No Cyanosis, No Edema, Normal Pulses SIGNIFICANT DATA Blood work reviewed sodium was 132 which is chronically low bicarbonate baseline is white count at 5092% granulocytes Chest x-ray showed small airway disease with COPD Problem x-ray and PFTs done in 2003 showed moderate obstructive lung disease Influenza was positive for type A IMPRESSION This is a 55-year-old lady with more than [id number] smoking history with previous history of significant COPD now comes in with Acute hypoxemic respiratory failure due to significant COPD exacerbation precipitated by influenza Ongoing smoking Transaminitis most likely due to viral etiology Chronic hyponatremia which needs to be evaluated Ongoing smoking Patient clinically appears to have very advanced lung disease with poor performance status and she is aware of the implications of ongoing smoking RECOMMENDATION Continue current antibiotics Reduce steroids to 40 mg daily as high dose of steroids and influenza does increased mortality and will wean the steroids off in the next 3 days [id number] nebulizer therapy Prior to discharge Will start her on Advair and Spiriva Continue nicotine patch Heparin subcutaneous Increase activity If she continues to be hypoxemic patient would benefit from a CTA of the chest as she had recent travel, worsening dyspnea Consult Acknowledgment - Thank you for your consult request.
[2016-05-21 23:30] VITALS: BP 148/78
--- NOTE | 2016-05-22 06:01 | PN- Housestaff ---
INDIGO DELGADILLO 05/22/16 0559: Subjective Follow-up For: - AECOPD - influenza Subjective: The patient was comfortable this morning. Remained afebrile overnight. Oxygen saturation in the range of 96-97% on 1 L oxygen. Stated that she was short of breath, when she walked from the bed to the bathroom. No other complaints. Had 1-2 episodes of diarrhea which improved compared to when she came in. Vitals were stable overnight. Discussed with her about the possibility of being discharged on oxygen. Informed the nurse to taper oxygen as tolerated. As per the patient, ambulatory saturations were checked, which was 87% after ambulation. Recheck ambulatory saturations in the a.m. Review of Systems Constitutional: Reports: see HPI. Objective Last 24 Hrs of Vital Signs/I&O Vital Signs Date Time Temp Pulse Resp B/P Pulse O2 O2 Flow FiO2 Ox Delivery Rate 05/22 0000 96 Nasal 1.0L Cannula 05/21 2330 98.8 96 20 148/78 96 Nasal 1.0L Cannula 05/21 1625 99 Nasal 3.0L Cannula 05/21 1413 98.4 98 20 130/100 97 05/21 1222 94 Nasal 3.0L Cannula 05/21 0926 96 Nasal 3.0L Cannula 05/21 0920 Nasal 3.0L Cannula 05/21 0800 94 Nasal 2.0L Cannula 05/21 0619 99.2 111 20 150/80 97 Nasal 2.0L Cannula Intake & Output 05/22 0800 05/22 0000 05/21 1600 Intake Total 880 880 Output Total 475 Balance 880 405 Intake, IV 400 400 Intake, Oral 480 480 Output, Urine 475 Physical Exam General Appearance: No Acute Distress Other Physical Findings: General Exam: AAOx3, No acute distress, Skin: No rashes, no breakdown HEENT: PERRLA, EOMI Neck: Supple, No JVD No cervical lymphadenopathy CVS: Reg Rate, Normal S1,S2, No MGR Resp: Low air entry, bilateral rhonchi/rales. Abdomen: Soft, No tenderness, Normal Bowel Sounds Neuro: Normal Speech, Strength 5/5 b/l x 4 extremities, Sensation intact, CN III -XII NL, Reflexes 2+ Extremities: No cyanosis, No pedal edema Current Medications: Current Medications Sig/Tha Start time Last Medication Dose Route Stop Time Status Admin Acetaminophen 650 MG Q6P PRN 05/20 2230 AC PO Albuterol Sulfate 3 ML EVERY 4 HRS/AWAKE 05/21 1200 AC 05/21 INH 2033 Albuterol Sulfate 2 PUF Q4-6 PRN PRN 05/20 2230 AC INH Azithromycin 250 MG DAILY 05/21 1000 AC 05/21 PO 1025 Budesonide/ 2 PUF BID 05/21 1140 CAN Formoterol Fumarate INH Budesonide/ 2 PUF BID 05/20 2223 AC 05/21 Formoterol Fumarate INH 2106 Guaifenesin 10 ML Q4P PRN 05/20 2230 AC PO Heparin Sodium 5,000 UNIT Q8 05/21 0600 AC 05/22 (Porcine) SC 0551 Ibuprofen 600 MG Q6P PRN 05/20 223 AC 05/21 PO 2106 Ipratropium [place] 2.5 ML EVERY 4 HRS/AWAKE 05/21 1200 AC 05/21 INH 2033 Methylprednisolone 40 MG Q12 05/22 1000 DC IV Methylprednisolone 40 MG DAILY 05/22 1000 AC IV Methylprednisolone 40 MG Q8 05/21 0600 DC 05/21 IV 05/21 2300 1421 Nicotine 14 MG DAILY 05/21 1000 AC 05/21 TOP 1025 Oseltamivir Phosphate 75 MG BID 05/21 1000 AC 05/21 PO 05/25 0959 2106 Oxycodone/ 2 TAB Q6P PRN 05/20 2229 AC Acetaminophen PO Sodium Chloride 1,000 ML Q20H 05/21 0645 DC 05/21 IV 05/22 0244 0654 Last 24 Hrs of Lab/Bill Results Last 24 Hrs of Labs/Mics: Laboratory Tests 05/21/16 1019: Total Bilirubin 0.6, Direct Bilirubin 0.6 H, AST 47 H, ALT 56 H, Alkaline Phosphatase 92, Total Protein 6.3, Albumin 3.8 05/21/16 0710: Anion Gap 10, Estimated GFR > 60, BUN/Creatinine Ratio 10.0, CBC w Diff NO MAN DIFF REQ, RBC 5.01, MCV 90.2, MCH 30.4, RDW 14.1, MPV 7.7, Gran % 93.2 H, Lymphocytes % 5.1 L, Monocytes % 1.2 L, Eosinophils % 0, Basophils % 0.5, Absolute Granulocytes 4.0, Absolute Lymphocytes 0.2 L, Absolute Monocytes 0.1 L, Absolute Eosinophils 0, Absolute Basophils 0, PUBS MCHC 33.7 Microbiology 05/21 1306 URINE ROUT: Legionella Antigen - CAN Cancelled: DUPLICATE 05/21 1300 LOWER RESP: Respiratory Culture - CAN Cancelled: NUMBER OF SQUAMOUS CELLS INDICATES POOR QUALITY SPECIMEN 05/21 1300 LOWER RESP: Gram Stain - CAN Cancelled: NUMBER OF SQUAMOUS CELLS INDICATES POOR QUALITY SPECIMEN Assessment/Plan Assessment: She is a middle-aged woman with a past history of COPD (not on any home oxygen), nonsmoker is being evaluated for worsening shortness of breath 2 months, cough, fever 1 week. Differential diagnosis: #1 acute exacerbation of COPD likely from influenza. Below is the problem list and plan: #1 shortness of breath, cough, fever-likely due to influenza, and COPD exacerbation. Continue intravenous steroids. Azithromycin. TRC, albuterol and Symbicort. Continue Tamiflu 75 mg by mouth twice a day for a total of 5 days. Follow low respirator cultures and blood cultures. Francisco J Acevedo MD advising.Taper oxygen as tolerated. Currently on 1 L. DC fluids. Legionella urine antigen and strep pneumo negative. #2 elevated AST/ALT-likely due to hepatic steatosis. Continue to monitor closely for any signs of liver disease. #3 DVT prophylaxis-subcutaneous tenderness heparin. #4 smoking cessation-discussed in detail about the adverse effects of smoking on worsening COPD and cancer. # 5 hyponatremia-check urine lites from urine sample that was collected on 05/21. Patient received IV fluids after the urine was collected. Problem List: 1. Influenza A 2. COPD exacerbation 3. Hypoxia Pain Ratin Pain Location: - none Pain Goal: Pain 4 or less Pain Plan: Percocet Ibuprofen Tylenol Tomorrow's Labs & Rationales: Basic electrolyte panel-patient had hyponatremia and elevated bicarbonate ELIEZER DAN,[facility] 05/22/16 1147: Attending MD Review Statement Attending Statement Attending MD Statement: examined this patient, discuss w/resident/PA/ACID PUMPER, agreed w/resident/PA/ACID PUMPER, reviewed EMR data (avail), discussed with nursing, discussed with case mgmt, reviewed images Attending Assessment/Plan: Patient feels better today overall. She is doing well on the Tamiflu and the prednisone has been cut down and is switching to by mouth. Her also has influenza and is at home. I encouraged her to advise her to seek medical care. Tobacco cessation was counseled extensively and she wants to stop without the aid of any gum, patch or medications. The plan is to taper off the oxygen as tolerated, continue the Tamiflu and likely discharge in the next 24-48 hours
[2016-05-22 06:54] VITALS: BP 136/80
[2016-05-22 09:09] LABS: ABSOLUTE BASOPHIL COUNT 0 /CUMM (0.0-0.2); ABSOLUTE EOSINOPHIL COUNT 0 /CUMM (0.0-0.7); ABSOLUTE LYMPH COUNT 0.6 /CUMM (1.2-3.4); BASOPHIL % 0.1 % (0.0-2.0); EOSINOPHIL % 0.1 % (0-5); MEAN CORPUSCULAR HGB CONC 33.6 G/DL (33.0-37.0); PLATELET COUNT 170 /CUMM (130-400); RBC DISTRIBUTION WIDTH 13.9 % (11.5-14.5); RED BLOOD CELL CT 4.56 /CUMM (4.20-5.40)
[2016-05-22 09:21] LABS: ABSOLUTE GRANULOCYTE CT 5.6 /CUMM (1.4-6.5); ABSOLUTE MONOCYTE COUNT 0.4 /CUMM (0.10-0.60); GRANULOCYTE % 84.7 % (42.2-75.2); HEMATOCRIT 41.1 % (37-47); MEAN CORPUSCULAR HGB 30.3 PG (27.0-31.0); MEAN CORPUSCULAR VOLUME 90.3 FL (81.0-99.0); MEAN PLATELET VOLUME 7.8 FL (7.4-10.4)
[2016-05-22 09:23] LABS: WHITE BLOOD CELL COUNT 6.6 /CUMM (4.8-10.8)
[2016-05-22 14:23] VITALS: BP 100/80; BP 160/80
--- NOTE | 2016-05-22 18:01 | PN- Pulmonary ---
Subjective HPI/Critical Care Issues: The patient was comfortable this morning. Remained afebrile overnight. Oxygen saturation in the range of 96-97% on 1 L oxygen. Stated that she was short of breath, when she walked from the bed to the bathroom. No other complaints. Had 1-2 episodes of diarrhea which improved compared to when she came in. Vitals were stable overnight. Discussed with her about the possibility of being discharged on oxygen. Informed the nurse to taper oxygen as tolerated. As per the patient, ambulatory saturations were checked, which was 87% after ambulation. Recheck ambulatory saturations in the a.m. Review of Systems Constitutional: Reports: see HPI. Objective Current Medications: Current Medications Sig/Tha Start time Last Medication Dose Route Stop Time Status Admin Acetaminophen 650 MG Q6P PRN 05/20 223 AC PO Albuterol Sulfate 3 ML EVERY 4 HRS/AWAKE 05/21 1200 AC 05/22 INH 1615 Albuterol Sulfate 2 PUF Q4-6 PRN PRN 05/20 2229 AC INH Azithromycin 250 MG DAILY 05/21 1000 AC 05/22 PO 1216 Budesonide/ 2 PUF BID 05/20 2223 AC 05/22 Formoterol Fumarate INH 1004 Fentanyl Citrate 100 MCG .STK-MED ONE 05/22 0931 DC IM 05/22 0932 Guaifenesin 10 ML Q4P PRN 05/20 2229 AC PO Heparin Sodium 5,000 UNIT Q8 05/21 0600 AC 05/22 (Porcine) SC 0551 Ibuprofen 600 MG Q6P PRN 05/20 223 AC 05/21 PO 2106 Ipratropium [place] 2.5 ML EVERY 4 HRS/AWAKE 05/21 1200 AC 05/22 INH 1615 Methylprednisolone 40 MG DAILY 05/22 1000 DC 05/22 IV 1005 Midazolam HCl 2 MG .STK-MED ONE 05/22 0932 DC IM 05/22 0933 Nicotine 14 MG DAILY 05/21 1000 AC 05/22 TOP 1004 Oseltamivir Phosphate 75 MG BID 05/21 1000 AC 05/22 PO 05/25 0959 1005 Oxycodone/ 2 TAB Q6P PRN 05/20 2229 AC 05/22 Acetaminophen PO 1004 Patient Medication 1 ED .STK-MED ONE 05/22 1425 DC Teaching ED 05/22 1426 Prednisone 40 MG DAILY 05/23 1000 AC PO Sodium Chloride 1,000 ML Q20H 05/21 0645 DC 05/21 IV 05/22 0244 0654 Vital Signs & I&O Last 24 Hrs of Vitals and I&O: Vital Signs Date Time Temp Pulse Resp B/P Pulse O2 O2 Flow FiO2 Ox Delivery Rate 05/22 1615 98 Nasal 1.0L Cannula 05/22 1423 97.9 98 20 160/80 95 05/22 0804 96 Nasal 1.0L Cannula 05/22 0800 96 Nasal 1.0L Cannula 05/22 0654 98.0 87 20 136/80 97 Nasal Cannula 05/22 0000 96 Nasal 1.0L Cannula 05/21 2330 98.8 96 20 148/78 96 Nasal 1.0L Cannula Intake & Output 05/22 1600 05/22 0800 05/22 0000 Intake Total 2000 540 1180 Output Total 875 Balance 7905 635 5512 Intake, IV 0 300 700 Intake, Oral 2000 240 480 Number 2 Bowel Movements Output, Urine 875 Impression/Plan Impression/Plan Impression/Plan: Physical Exam General Appearance Alert, Oriented X3, Cooperative, No Acute Distress Skin has some petechiae and sores on bilat arms. HEENT Atraumatic, PERRLA, EOMI, Mucous Membr. moist/pink Neck Supple Cardiovascular Regular Rate, Normal S1, Normal S2, No Murmurs Lungs DIMINISHED BREATH SOUNDS AND AIR MOVEMENT. NO WHEEZES, RUBS OR RHONCHI. Abdomen Soft, No Tenderness Neurological Normal Speech, Strength at 5/5 X4 Ext Extremities No Clubbing, No Cyanosis, No Edema, Normal Pulses SIGNIFICANT DATA Blood work reviewed sodium was 132 which is chronically low bicarbonate baseline is white count at 5092% granulocytes Chest x-ray showed small airway disease with COPD Problem x-ray and PFTs done in 2003 showed moderate obstructive lung disease Influenza was positive for type A IMPRESSION This is a 55-year-old lady with more than [id number] smoking history with previous history of significant COPD now comes in with Improving COPD exacerbation precipitated by influenza Ongoing smoking now has quit Transaminitis most likely due to viral etiology Chronic hyponatremia which needs to be evaluated Patient clinically appears to have very advanced lung disease with poor performance status and she is aware of the implications of ongoing smoking RECOMMENDATION Continue current antibiotics Wean off steroids fast [id number] nebulizer therapy Prior to discharge Will start her on Advair and Spiriva Continue nicotine patch Heparin subcutaneous Increase activity If she continues to be hypoxemic patient would benefit from a CTA of the chest as she had recent travel, worsening dyspnea can order in am if she is still dependent of oxygen
[2016-05-22 22:20] VITALS: BP 130/72
[2016-05-23 06:27] VITALS: BP 146/78
--- NOTE | 2016-05-23 07:18 | PN- Housestaff ---
INDIGO DELGADILLO 05/23/16 0717: Subjective Follow-up For: - influenza positive - AECOPD Subjective: He was comfortable this morning. Vitals were stable. She was on 1 L oxygen Ricki saw this morning. Did not have any complaints. During the day, ambulatory saturations revealed oxygen saturation less than 88%. Arrangements were made for her to receive oxygen and nebulizer machine. Discussed with Dr. Acevedo and plan was to discharge the patient with close follow-up with Dr. Acevedo within 1 week to reassess the need for oxygen. Review of Systems Constitutional: Reports: see HPI. Objective Last 24 Hrs of Vital Signs/I&O Vital Signs Date Time Temp Pulse Resp B/P Pulse O2 O2 Flow FiO2 Ox Delivery Rate 05/23 0627 98.3 92 20 146/78 93 Room Air 05/22 2220 98.7 87 20 130/72 94 Room Air 05/22 1615 98 Nasal 1.0L Cannula 05/22 1423 97.9 98 20 160/80 95 05/22 0804 96 Nasal 1.0L Cannula 05/22 0800 96 Nasal 1.0L Cannula Intake & Output 05/23 0800 05/23 0000 05/22 1600 Intake Total 1000 2000 Output Total 875 Balance 1000 1125 Intake, IV 0 Intake, Oral 1000 2000 Number 2 Bowel Movements Output, Urine 875 Physical Exam General Appearance: No Acute Distress Other Physical Findings: General Exam: AAOx3, No acute distress, Skin: No rashes, no breakdown HEENT: PERRLA, EOMI Neck: Supple, No JVD No cervical lymphadenopathy CVS: Reg Rate, Normal S1,S2, No MGR Resp: Bilateral low at entry, wheezes bilateral decreased compared to yesterday. Abdomen: Soft, No tenderness, Normal Bowel Sounds Neuro: Normal Speech, Strength 5/5 b/l x 4 extremities, Sensation intact, CN III -XII NL, Reflexes 2+ Extremities: No cyanosis, pedal edema Current Medications: Current Medications Sig/Tha Start time Last Medication Dose Route Stop Time Status Admin Acetaminophen 650 MG Q6P PRN 05/20 2229 AC PO Albuterol Sulfate 3 ML EVERY 4 HRS/AWAKE 05/21 1200 AC 05/22 INH 2040 Albuterol Sulfate 2 PUF Q4-6 PRN PRN 05/20 2229 AC INH Azithromycin 250 MG DAILY 05/21 1000 AC 05/22 PO 1216 Budesonide/ 2 PUF BID 05/20 2223 AC 05/22 Formoterol Fumarate INH 2147 Fentanyl Citrate 100 MCG .STK-MED ONE 05/22 0931 DC IM 05/22 0932 Guaifenesin 10 ML Q4P PRN 05/20 2230 AC PO Heparin Sodium 5,000 UNIT Q8 05/21 0600 AC 05/23 (Porcine) SC 0646 Ibuprofen 600 MG Q6P PRN 05/20 2230 AC 05/21 PO 2106 Ipratropium [place] 2.5 ML EVERY 4 HRS/AWAKE 05/21 1200 AC 05/22 INH 2040 Methylprednisolone 40 MG DAILY 05/22 1000 DC 05/22 IV 1005 Midazolam HCl 2 MG .STK-MED ONE 05/22 0932 DC IM 05/22 0933 Nicotine 14 MG DAILY 05/21 1000 AC 05/22 TOP 1004 Oseltamivir Phosphate 75 MG BID 05/21 1000 AC 05/22 PO 05/25 0959 2145 Oxycodone/ 2 TAB Q6P PRN 05/20 223 AC 05/22 Acetaminophen PO 1004 Patient Medication 1 ED .STK-MED ONE 05/22 1425 DC Teaching ED 05/22 1426 Prednisone 40 MG DAILY 05/23 1000 AC PO Last 24 Hrs of Lab/Bill Results Last 24 Hrs of Labs/Mics: Laboratory Tests 05/23/16 0650: Sodium Pending, Potassium Pending, Chloride Pending, Carbon Dioxide Pending, Anion Gap Pending, BUN Pending, Creatinine Pending, BUN/Creatinine Ratio Pending , Glucose Pending 05/22/16 0810: Anion Gap 7, Estimated GFR > 60, BUN/Creatinine Ratio 16.7, CBC w Diff NO MAN DIFF REQ, RBC 4.56, MCV 90.3, MCH 30.3, RDW 13.9, MPV 7.8, Gran % 84.7 H, Lymphocytes % 8.5 L, Monocytes % 6.6, Eosinophils % 0.1, Basophils % 0.1, Absolute Granulocytes 5.6, Absolute Lymphocytes 0.6 L, Absolute Monocytes 0.4, Absolute Eosinophils 0, Absolute Basophils 0, PUBS MCHC 33.6 Assessment/Plan Assessment: She is a middle-aged woman with a past history of COPD (not on any home oxygen), nonsmoker is being evaluated for worsening shortness of breath 2 months, cough, fever 1 week. Differential diagnosis: #1 acute exacerbation of COPD likely from influenza. Below is the problem list and plan: #1 shortness of breath, cough, fever-likely due to influenza, and COPD exacerbation. Continue intravenous steroids. Azithromycin. TRC, albuterol and Symbicort. Continue Tamiflu 75 mg by mouth twice a day for a total of 5 days. Follow low respirator cultures and blood cultures. Francisco J Acevedo MD advising.Taper oxygen as tolerated. Legionella urine antigen and strep pneumo negative. #2 elevated AST/ALT-likely due to hepatic steatosis. Continue to monitor closely for any signs of liver disease. #3 DVT prophylaxis-subcutaneous tenderness heparin. #4 smoking cessation-discussed in detail about the adverse effects of smoking on worsening COPD and cancer. Problem List: 1. Influenza A 2. Hypoxia 3. COPD exacerbation Pain Ratin Pain Location: None Pain Goal: Pain 4 or less Pain Plan: Tylenol when necessary Tomorrow's Labs & Rationales: No labs necessary. The patient to be discharged. JUDSON DAN,[facility] 05/23/16 1237: Attending MD Review Statement Attending Statement Attending MD Statement: examined this patient, discuss w/resident/PA/DOCUMENT IMAGE TECHNICIAN, agreed w/resident/PA/DOCUMENT IMAGE TECHNICIAN, reviewed EMR data (avail), discussed with nursing, discussed with case mgmt, reviewed images, amended to note Attending Assessment/Plan: Patient seen and examined, overall feeling much better. At rest she is not requiring oxygen but on ambulation she dropped her oxygen saturations therefore she will need to go home with oxygen. She also needs a nebulizer machine at home. Vital Signs Date Time Temp Pulse Resp B/P Pulse O2 O2 Flow FiO2 Ox Delivery Rate 05/23 0742 94 Room Air 05/23 0627 98.3 92 20 146/78 93 Room Air 05/22 2220 98.7 87 20 130/72 94 Room Air 05/22 1615 98 Nasal 1.0L Cannula 05/22 1423 97.9 98 20 160/80 95 on exam; aox3, nad. cv; s1,s2, rrr. resp; decreased bs overall. abd; soft, nt, bs+ ext; no edema. Laboratory Tests 05/23 0650 Chemistry Sodium (137 - 145 mmol/L) 133 L Potassium (3.5 - 5.1 mmol/L) 4.0 Chloride (98 - 107 mmol/L) 91 L Carbon Dioxide (22 - 30 mmol/L) 35 H Anion Gap (5 - 16) 7 BUN (7 - 17 mg/dL) 10 Creatinine (0.5 - 1.0 mg/dL) 0.6 Estimated GFR (>60 ml/min) > 60 BUN/Creatinine Ratio (7 - 25 %) 16.7 Glucose (65 - 99 mg/dL) 89 A/P; 55-year-old female with past medical history significant for COPD who was admitted with acute COPD exacerbation as well as positive influenza. Currently treated with Tamiflu as well as prednisone with a short taper. Overall doing much better. Ambulatory O2 saturation dropped therefore she will need home oxygen. She also needs a nebulizer machine at home. Patient is medically stable for discharge home today to complete the course of steroid taper as well as Tamiflu as an outpatient. She will follow-up with her primary care doctor Radha Medrano MD as well as natural science manager Dr. Acevedo as an outpatient.
--- NOTE | 2016-05-23 09:34 | Patient Discharge Instructions ---
Discharge Instructions General Discharge Information You were seen/treated for: 1. Please see your PCP within one week of discharge. Acute Coronary Syndrome Inclusion Criteria At DC or during hospital stay patient has or had the following: ACS DIAGNOSIS No Discharge Core Measures Meds if any: Prescribed or Continued at Discharge Meds if any: NOT Prescribed or Continued at Discharge Congestive Heart Failure Inclusion Criteria At DC or during hospital stay patient has or had the following: CHF DIAGNOSIS No Discharge Core Measures Meds if any: Prescribed or Continued at Discharge Meds if any: NOT Prescribed or Continued at Discharge Cerebrovascular accident Inclusion Criteria At DC or during hospital stay patient has or had the following: CVA/TIA Diagnosis No Discharge Core Measures Meds if any: Prescribed or Continued at Discharge Meds if any: NOT Prescribed or Continued at Discharge Venous thromboembolism Inclusion Criteria VTE Diagnosis No VTE Type NONE VTE Confirmed by (Test) NONE Discharge Core Measures - Per Current guidelines, there needs to be overlap - treatment for the first 5 days of Warfarin therapy. - If discharged on Warfarin prior to 5 days of - overlap therapy, the patient will need to be - assessed for post discharge needs including - *Post discharge parental anticoagulation - *Warfarin and/or parental anticoagulation education - *Follow up date to check INR post discharge At least 5 days overlap therapy as Inpatient No Meds if any: Prescribed or Continued at Discharge Note: Overlap Therapy is Warfarin and Anticoagulant Meds if any: NOT Prescribed or Continued at Discharge
--- NOTE | 2016-05-23 09:57 | PN- Pulmonary ---
Subjective HPI/Critical Care Issues: Doing well afebrile vss Objective Current Medications: Current Medications Sig/Tha Start time Last Medication Dose Route Stop Time Status Admin Acetaminophen 650 MG Q6P PRN 05/20 2229 AC PO Albuterol Sulfate 3 ML EVERY 4 HRS/AWAKE 05/21 1200 AC 05/23 INH 0735 Albuterol Sulfate 2 PUF Q4-6 PRN PRN 05/20 223 AC INH Azithromycin 250 MG DAILY 05/21 1000 AC 05/23 PO 0914 Budesonide/ 2 PUF BID 05/20 222 AC 05/23 Formoterol Fumarate INH 0914 Guaifenesin 10 ML Q4P PRN 05/20 223 AC PO Heparin Sodium 5,000 UNIT Q8 05/21 0600 AC 05/23 (Porcine) SC 0646 Ibuprofen 600 MG Q6P PRN 05/20 2229 AC 05/21 PO 2106 Ipratropium [place] 2.5 ML EVERY 4 HRS/AWAKE 05/21 1200 AC 05/23 INH 0735 Methylprednisolone 40 MG DAILY 05/22 1000 DC 05/22 IV 1005 Nicotine 14 MG DAILY 05/21 1000 AC 05/22 TOP 1004 Oseltamivir Phosphate 75 MG BID 05/21 1000 AC 05/23 PO 05/25 0959 0914 Oxycodone/ 2 TAB Q6P PRN 05/20 2229 AC 05/22 Acetaminophen PO 1004 Patient Medication 1 ED .STK-MED ONE 05/22 1425 DC Teaching ED 05/22 1426 Prednisone 40 MG DAILY 05/23 1000 AC 05/23 PO 0914 Vital Signs & I&O Last 24 Hrs of Vitals and I&O: Vital Signs Date Time Temp Pulse Resp B/P Pulse O2 O2 Flow FiO2 Ox Delivery Rate 05/23 0742 94 Room Air 05/23 0627 98.3 92 20 146/78 93 Room Air 05/22 2219 98.7 87 20 130/72 94 Room Air 05/22 1615 98 Nasal 1.0L Cannula 05/22 142 97.9 98 20 160/80 95 Intake & Output 05/23 1600 05/23 0800 05/23 0000 Intake Total 300 1000 Output Total Balance 300 1000 Intake, Oral 300 1000 Laboratory Tests 05/23 05/22 05/21 0650 0810 1019 Chemistry Sodium (137 - 145 mmol/L) 133 L 130 L Potassium (3.5 - 5.1 mmol/L) 4.0 4.2 Chloride (98 - 107 mmol/L) 91 L 90 L Carbon Dioxide (22 - 30 mmol/L) 35 H 33 H Anion Gap (5 - 16) 7 7 BUN (7 - 17 mg/dL) 10 10 Creatinine (0.5 - 1.0 mg/dL) 0.6 0.6 Estimated GFR (>60 ml/min) > 60 > 60 BUN/Creatinine Ratio (7 - 25 %) 16.7 16.7 Glucose (65 - 99 mg/dL) 89 Total Bilirubin (0.2 - 1.3 mg/dL) 0.6 Direct Bilirubin (< 0.4 mg/dL) 0.6 H AST (14 - 36 U/L) 47 H ALT (9 - 52 U/L) 56 H Alkaline Phosphatase (<127 U/L) 92 Total Protein (6.3 - 8.2 g/dL) 6.3 Albumin (3.5 - 5.0 g/dL) 3.8 Hematology CBC w Diff NO MAN DIFF REQ WBC (4.8 - 10.8 /CUMM) 6.6 RBC (4.20 - 5.40 /CUMM) 4.56 Hgb (12.0 - 16.0 G/DL) 13.8 Hct (37 - 47 %) 41.1 MCV (81.0 - 99.0 FL) 90.3 MCH (27.0 - 31.0 PG) 30.3 RDW (11.5 - 14.5 %) 13.9 Plt Count (130 - 400 /CUMM) 170 MPV (7.4 - 10.4 FL) 7.8 Gran % (42.2 - 75.2 %) 84.7 H Lymphocytes % (20.5 - 51.1 %) 8.5 L Monocytes % (1.7 - 9.3 %) 6.6 Eosinophils % (0 - 5 %) 0.1 Basophils % (0.0 - 2.0 %) 0.1 Absolute Granulocytes (1.4 - 6.5 /CUMM) 5.6 Absolute Lymphocytes (1.2 - 3.4 /CUMM) 0.6 L Absolute Monocytes (0.10 - 0.60 /CUMM) 0.4 Absolute Eosinophils (0.0 - 0.7 /CUMM) 0 Absolute Basophils (0.0 - 0.2 /CUMM) 0 PUBS MCHC (33.0 - 37.0 G/DL) 33.6 Microbiology Date/Time Procedure - Status Source Growth 05/21 1306 Legionella Antigen - CAN URINE ROUT Cancelled: DUPLICATE 05/21 1300 Respiratory Culture - CAN LOWER RESP Cancelled: NUMBER OF SQUAMOUS CELLS INDICATES POOR QUALITY SPECIMEN 05/21 1300 Gram Stain - CAN LOWER RESP Cancelled: NUMBER OF SQUAMOUS CELLS INDICATES POOR QUALITY SPECIMEN 05/21 0500 Legionella Antigen - COMP URINE ROUT 05/21 0500 Streptococcus pneumoniae Antigen (M - COMP URINE ROUT 05/21 0500 Urine Culture - COMP URINE ROUT 05/20 2248 Blood Culture - RES BLOOD 05/20 2238 Blood Culture - RES BLOOD 05/20 2230 Respiratory Culture - CAN LOWER RESP Cancelled: SPECIMEN NOT RECEIVED IN LABORATORY 05/20 2230 Gram Stain - CAN LOWER RESP Cancelled: SPECIMEN NOT RECEIVED IN LABORATORY 05/20 2054 Influenza Virus A & B Rapid Smear - COMP NASOPHARYN INFLUENZA TYPE A Impression/Plan Impression/Plan Impression/Plan: Physical Exam General Appearance Alert, Oriented X3, Cooperative, No Acute Distress Skin has some petechiae and sores on bilat arms. HEENT Atraumatic, PERRLA, EOMI, Mucous Membr. moist/pink Neck Supple Cardiovascular Regular Rate, Normal S1, Normal S2, No Murmurs Lungs DIMINISHED BREATH SOUNDS AND AIR MOVEMENT. NO WHEEZES, RUBS OR RHONCHI. Abdomen Soft, No Tenderness Neurological Normal Speech, Strength at 5/5 X4 Ext Extremities No Clubbing, No Cyanosis, No Edema, Normal Pulses SIGNIFICANT DATA Blood work reviewed sodium was 132 which is chronically low bicarbonate baseline is white count at 5092% granulocytes Chest x-ray showed small airway disease with COPD Problem x-ray and PFTs done in 2003 showed moderate obstructive lung disease Influenza was positive for type A IMPRESSION This is a 55-year-old lady with more than [id number] smoking history with previous history of significant COPD now comes in with Improving COPD exacerbation precipitated by influenza Ongoing smoking now has quit Transaminitis most likely due to viral etiology Chronic hyponatremia which needs to be evaluated Patient clinically appears to have very advanced lung disease with poor performance status and she is aware of the implications of ongoing smoking RECOMMENDATION Continue current antibiotics Start on symbicort and spiriva or advair if pt was on it prior to admission instead of symbicort Continue nicotine patch Heparin subcutaneous Increase activity Ok to dc will follow in few weeks
[2016-05-23] MEDS ORDERED: TAMIFLU75 M1 PO (12:38)
[2016-05-23] MEDS ORDERED: SPIRIVA18 MCG INH (12:57)
[2016-05-23] MEDS ORDERED: PREDNISONE10 M2 PO (12:57)
[2016-05-23] MEDS ORDERED: ALBUTEROL0.63 MG/1 INH/SOL (12:57)
[2016-05-23] MEDS ORDERED: ZITHROMAX250 M2 PO (12:57)
== END 2016-05-23 17:56 | DRG 190 ==
LOC: ENRESERVTM → ENRESERVDT → ERH 20:16 → ERHI 22:08 → 2NA 22:08
PROVIDERS: Internal Medicine; Internal Medicine Endocrinology, Diabetes & Metabolism; Physician Assistant Medical; ADMIT Student in an Organized Health Care Education/Training Program
DX: J44.1 Chronic obstructive pulmonary disease with (acute) exacerbation (principal); J96.01 Acute respiratory failure with hypoxia; E87.1 Hypo-osmolality and hyponatremia; J10.1 Influenza due to other identified influenza virus with other respiratory manifestations; F17.210 Nicotine dependence, cigarettes, uncomplicated
CPT/HCPCS: 2NAP; ERO; 82436; 87040; 87070; 87086; 87449; 87450; 87804; 87804-59; 93005; 93010; J0456; J1644; J2920; J2930; J3490